=== PATIENT | female | born 1945 | race Caucasian/White ===

== ENCOUNTER 2025-02-13 19:34 | Emergency (ER) | payer MEDICARE ==
[2025-02-13 20:35] LABS: BASOPHILS ABSOLUTE AUTO 0.0 K/mm3 (0.0-0.2); BASOPHILS PERCENT AUTO 0.4 % (0.0-1.0); EOSINOPHILS ABSOLUTE AUTO 0.4 K/mm3 (0.0-0.4); EOSINOPHILS PERCENT AUTO 4.2 % (0.0-6.0); IMMATURE GRAN ABSOLUTE AUTO 0.04 K/mm3 (0.00-0.05); IMMATURE GRAN PERCENT AUTO 0.4 % (0.0-0.4); LYMPHOCYTES ABSOLUTE AUTO 1.8 K/mm3 (1.0-4.8); LYMPHOCYTES PERCENT AUTO 19.6 % (24.0-44.0); MEAN PLATELET VOLUME 8.4 fl (9.4-12.3); MONOCYTES ABSOLUTE AUTO 1.2 K/mm3 (0.0-0.8); MONOCYTES PERCENT AUTO 13.2 % (0.0-8.0); NEUTROPHILS ABSOLUTE AUTO 5.7 K/mm3 (1.8-7.7); NEUTROPHILS PERCENT AUTO 62.2 % (41.0-71.0); NRBC ABSOLUTE 0.00 (0.00-0.02); NRBC PERCENT 0.0 % (0.0-0.2); PLATELET COUNT,PLT 214 K/mm3 (150-400); RED BLOOD CELL COUNT 4.12 M/mm3 (4.10-5.30); WHITE BLOOD CELL COUNT,WBC 9.22 K/mm3 (3.9-11.3)
[2025-02-13] MEDS: Phenazopyridine 95 MG Tab PO ONE (21:13)
[2025-02-13 21:25] LABS: APPEARANCE,URINE SLT CLOUDY (Clear); GLUCOSE,URINE NEGATIVE (Negative); OCCULT BLOOD,URINE 2+ (Negative)
[2025-02-13 21:27] LABS: A/G RATIO 1.0 (1-2); ALANINE AMINOTRANSFERASE,ALT 30.0 U/L (14-59); ASPARTATE AMNIOTRANSFERASE,AST 21.0 U/L (15-37); BILIRUBIN TOTAL 0.3 mg/dL (0.2-1.0); BLOOD UREA NITROGEN,BUN 14.0 mg/dL (7-18); CARBON DIOXIDE,CO2 30.0 mEq/L (21-32); CHLORIDE,CL 99.0 mEq/L (98-107); CREATININE 0.9 mg/dL (0.55-1.02); EST CRCL DRUG DOSING (CG) 43.05 mL/min; ESTIMATED GFR 65.0 mL/min (>60); GLUCOSE RANDOM 118.0 mg/dL (70-99); POTASSIUM,K 3.7 mEq/L (3.5-5.1); PROTEIN TOTAL,TP 6.9 g/dl (6.4-8.2); SODIUM,NA 134.0 mEq/L (136-145)
[2025-02-13 21:40] LABS: SQUAMOUS EPITHELIAL CELLS,UR 0-5 /hpf (0-5)
[2025-02-14] MEDS ORDERED: Phenazopyridine 95 MG Tab PO SCH ×2 (09:00→20:40)
[2025-02-14] MEDS ORDERED: Phenazopyridine 95 MG Tab PO ONE (20:57)
== END 2025-02-13 22:31 | disposition home or self-care (01) ==
LOC: JD.ED 19:34
DX: N39.0 Urinary tract infection, site not specified (principal); I10 Essential (primary) hypertension; Z88.8 Allergy status to other drugs, medicaments and biological substances; Z79.899 Other long term (current) drug therapy
CPT/HCPCS: 36415; 80053; 81001; 85025; 87086; 87088; 87186; 96372; 99283; A9270; J0696